=== PATIENT | male | born 2005 | race Caucasian/White ===

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

== ENCOUNTER 2024-08-31 21:55 | Emergency (ER) | payer SELFPAY ==
[2024-08-31 21:56] VITALS: BP 117/68; PULSE 75; RESP 16; TEMP 36.4; O2SAT 98
[2024-08-31 22:02] VITALS: BMI 21.4
[2024-08-31 23:03] LABS: Absolute Neutrophil Count 13.4 X10^3/uL (2.0-7.7); Basophil# 0.04 X10^3/uL; Basophil% 0.3 % (0-1); Eosinophil# 0.08 X10^3/uL; Eosinophils% 0.5 % (0-5); Hematocrit 46.9 % (40-54); Hemoglobin 16.2 g/dL (13.0-16.5); Lymphocyte % 2.7 % (19-41); Mean Corp Hgb Conc 34.5 g/dL (32-36); Mean Corpuscular Hgb 29.3 pg (27.0-32.0); Mean Platelet Vol. 9.3 fl (6.2-12.0); Monocyte# 1.07 X10^3/uL; Monocyte% 7.1 % (0-10); NRBC Flagged by Analyzer 0 % (0-5); Neutrophil # 13.35 X10^3/uL (2.7-7.7); Neutrophil % 89.1 % (47-70); POSITIVE DIFFERENTIAL YES; Platelet Count 234 K/mm3 (150-450); RBC Distribution Width CV 12.7 % (11.6-14.6); RBC Distribution Width SD 38.8 fl (35.1-43.9); Red Blood Count 5.52 M/mm3 (4.6-6.2)
[2024-08-31] MEDS: 0.9% Normal Saline (1000mL) 1,000 ML 999 ML IV (23:03)
[2024-08-31] MEDS: Ondansetron 4 MG/2 ML Vial IV (23:03)
--- NOTE | 2024-08-31 23:07 | EX.ED.DYSGE1 ---
HPI History of Present Illness Chief Complaint: Nausea/Vomiting/Diarrhea Informant: patient and spouse/S.O. Narrative Narrative: 18-year-old male presenting to the emergency room with a chief complaint of vomiting and diarrhea. Patient states that he was [place] near [facility] over the weekend. He returned home Saturday evening went to work today. Upon arriving home from work today began to have vomiting and diarrhea. He noted some cramping in his hips. He denies any fevers. Significant other is not been sick and they had the same food and drink. He states he did brush his teeth using the tap water in the cabin. He believes it is well water. PFSH PFS Medical History Strain of right Achilles tendon Right ankle sprain Seasonal allergies hx of growth plate fracture to right ankle Home Medications ?Medication ?Instructions ?Recorded ?Last Taken ?Type ondansetron 4 mg disintegrating 4 mg PO Q6H PRN PRN Nausea #15 tabs 08/31/24 Unknown Rx tablet Allergy/AdvReac Type Severity Reaction Status Date / Time No Known Allergies Allergy Verified 06/01/21 16:49 Surgical History History of ankle surgery Social History Smoking Status: Never smoker ROS ROS ED Constitutional Constitutional ED: Reports chills and sweats; Denies fever(s) or weight loss Eyes Eyes: Denies change in vision or diplopia ENT ENT ED: Denies ear pain, rhinorrhea or sore throat Cardiovascular Cardiovascular: Denies chest pain, orthopnea, palpitations or racing heartbeat Respiratory/Chest Respiratory/Chest: Denies cough, dyspnea or orthopnea Gastrointestinal Gastrointestinal: Reports diarrhea, nausea and vomiting; Denies abdominal pain Genitourinary Genitourinary ED: Denies dysuria, hematuria or urinary frequency Musculoskeletal Musculoskeletal: Denies arthralgias or myalgias Integumentary Denies abscess or rash Neurologic Neurologic: Denies headache(s) or weakness Psychiatric Psychiatric: Denies anxiety, depression, suicidal ideation or suicidal thoughts Endocrine Endocrinology: Denies polydipsia, polyphagia or polyuria Allergic/Immunologic Allergic/Immunologic ED: Denies mouth swelling, tongue swelling or urticaria EXAM Physical Exam Const Vital Signs: 08/31/24 21:56 Temperature 97.5 F L Temperature Source Temporal Pulse Rate 75 Respiratory Rate 16 Blood Pressure 117/68 Blood Pressure Mean 84 Pulse Ox 98 Oxygen Delivery Method Room Air Positive well nourished and well developed General Appearance ED: well developed HEENT Reports normocephalic, head/scalp atraumatic and moist mucous membranes Eyes PERRL and EOMs intact bilaterally Neck no lymphadenopathy, supple and no JVD Resp normal respiratory effort and clear to auscultation bilaterally Cardio regular rate, regular rhythm and no murmurs GI normal to inspection, nondistended, normoactive bowel sounds and non-tender Palpation: soft Back/Spine no CVA tenderness and normal ROM Extremity normal to inspection General Extremety ED: Negative for edema General Extremity: Negative for edema Neuro oriented x3 and CN's II-XII intact bilaterally Sensorium / Orientation: alert Motor Exam: strength 5/5 throughout Psych mental status grossly normal Mood & Affect: Negative for depressed or tearful Skin no rashes or lesions noted and no wounds MDM MDM MDM Narrative Medical decision making narrative: Differential diagnosis includes but not limited to viral gastroenteritis bacterial gastroenteritis colitis bowel obstruction dehydration electrolyte abnormalities acute kidney injury Patient received IV fluids as well as Zofran. Basic blood work obtained shows a nonspecific leukocytosis at 15. Normal LFTs and lipase. Electrolytes are within normal limits glucose of 109. Patient was unable to give us a stool specimen. He has Zofran at home. I will write for additional Zofran on the paper prescription should he require it. He is to monitor the stool. If it is bloody he needs to return. If he is not improving he can return or follow-up with primary care History & Record Review Discussion w/independent historian: Patient and Significant other Lab Data Attestation: I reviewed the patient's lab results. Labs: Laboratory Results - last 24 hr 08/31/24 22:50 WBC 15.0 H RBC 5.52 Hgb 16.2 Hct 46.9 MCV 85.0 MCH 29.3 MCHC 34.5 RDW Std Deviation 38.8 RDW Coeff of Amadou 12.7 Plt Count 234 MPV 9.3 Immature Gran % (Auto) 0.300 Neut % (Auto) 89.1 H Lymph % (Auto) 2.7 L [place] % (Auto) 7.1 Eos % (Auto) 0.5 Baso % (Auto) 0.3 Absolute Neuts (auto) 13.4 H Absolute Lymphs (auto) 0.40 L Nucleated RBC % 0 Sodium 139 Potassium 4.4 Chloride 101 Carbon Dioxide 23.8 Anion Gap 14 BUN 11 Creatinine 1.06 Estim Creat Clear Calc 116.69 Est GFR (MDRD) Non-Af 104 BUN/Creatinine Ratio 10.8 Glucose 109 H Calcium 9.8 Total Bilirubin 0.83 Direct Bilirubin 0.35 H AST 31 ALT 20 Alkaline Phosphatase 80 Total Protein 8.1 Albumin 5.2 H Globulin 3.0 Lipase 62 Discharge Plan Triage Chief Complaint: Nausea/Vomiting/Diarrhea ED Provider: Jean Barry Dx/Rx/DC Orders Clinical Impression: Gastroenteritis Instructions: ED Vomit Diarrhea [place]ons[place] Adult Prescriptions: New ondansetron 4 mg tablet,disintegrating 4 mg PO Q6H PRN PRN (Reason: Nausea) Qty: 15 0RF Primary Care Provider: Charlie Mcfarland Referrals: Charlie Mcfarland MD [Primary Care Provider] - 3-5 Days if not improving Print Language: [place] Disposition Disposition: Home, Self Care
[2024-08-31 23:20] LABS: AST(SGOT) 31 U/L (<=37); Alanine Aminotransfer ALT/SGPT 20 U/L (<=46); Albumin, Serum 5.2 g/dL (3.5-5.0); Alkaline Phosphatase 80 U/L (40-129); Anion Gap 14 (5-15); BUN 11 mg/dL (4-19); BUN/Creat Ratio 10.8 RATIO (10-20); Bilirubin, Direct 0.35 mg/dL (0.00-0.30); Calcium,Total 9.8 mg/dL (7.6-11.0); Carbon Dioxide 23.8 mmol/L (21.0-32.0); Chloride 101 mmol/L (98-108); Creatinine, Serum 1.06 mg/dL (0.70-1.20); EST Glomerular Filtration Rate 104 (>60); Estimated Creatinine Clearance 116.69 ml/min (50-250); Glucose 109 mg/dL (70-99); Lipase 62 U/L (13-75); Potassium 4.4 mmol/L (3.3-5.1); Protein, Total 8.1 g/dL (5.9-8.4); Sodium Level 139 mmol/L (133-145); Total Bilirubin 0.83 mg/dL (0.00-1.30)
[2024-08-31 23:56] VITALS: PULSE 76; RESP 18; O2SAT 99
[2024-09-01] MEDS: Ondansetron 4 MG/2 ML Vial IV (00:04)
--- NOTE | 2024-09-03 16:30 | ED.RN ---
Pt called in and wanted a work note for multiple days. Pt was told that we could give him a note for the day he was here and that was it. 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
== END 2024-09-01 00:07 | disposition home or self-care (01) ==
PROVIDERS: Emergency Provider Emergency Medicine; Visit Provider Emergency Medicine
DX: K52.9 Noninfective gastroenteritis and colitis, unspecified (principal)
CPT/HCPCS: 80048; 80076; 83690; 85025; 96361; 96374; 96376; 99285; A4216; J2405